=== PATIENT | female | born 1980 | race Caucasian/White ===

== ENCOUNTER 2018-05-27 02:19 | Inpatient (IN) | payer SELFPAY ==
[2018-05-27 02:37] VITALS: BMI 35.6
[2018-05-27] MEDS: Lactated Ringer's 1,000 ML IV ONE ×2 (03:00→04:00)
[2018-05-27] MEDS ORDERED: cefOXitin Sodium 1 GM in Sodium Chloride 0.9% 100 ML IVPB ONE (03:15)
[2018-05-27] MEDS ORDERED: OXYTOCIN/0.9 % NS 20 UNIT/1,000 ML BAG IV SCH (03:30)
--- NOTE | 2018-05-27 03:34 | OBADHP ---
Datetime: 05/27/2018 03:28 IP Chief Complaint Other: previous section in labor IP Adm Impression Other: prev C/S in labor Admit Comment, IP Provider: GBS neg. 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 Ext no calf tender ness. Gestation - Est Wks by US: 38+ IP Hx Assessment: The History has been Reviewed and is Current IP Chief Complaint: Uterine contractions; Other NICHD Variability Prov Fetus A: Minimal - Undetectable to <5bpm NICHD Decel Fetus A IP Provider: None Dilatation, Provider: 1cm Effacement, Provider: 50 Genitourinary Exam: Normal IP Adm Impression: Term, intrauterine ; Active labor IP Admit Plan: Admit to unit; Initiate Section protocol
[2018-05-27 03:41] LABS: BASO # 0.1 K/uL (0.0-0.2); BASO % 0.5 % (0.0-2.0); EOS # 0.2 K/uL (0.0-0.7); EOS % 1.3 % (0.0-4.0); HEMOGLOBIN 12.7 g/dL (12.0-16.0); LYMPH # 3.6 K/uL (1.0-4.3); LYMPH % 28.6 % (20.0-40.0); MEAN CELL VOLUME 84.9 fl (81.0-99.0); MEAN CORPUSCULAR HEMOGLOBIN 28.1 pg (27.0-31.0); MEAN CORPUSCULAR HGB CONC 33.1 g/dL (33.0-37.0); MEAN PLATELET VOLUME 9.2 fl (7.2-11.7); MONO # 0.8 K/uL (0.0-0.8); MONO % 6.6 % (0.0-10.0); NEUT # 7.9 K/uL (1.8-7.0); NRBC % 0.1 % (0.0-0.0); RBC 4.5 Mil/uL (3.80-5.20); RED CELL DISTRIBUTION WIDTH 15.3 % (11.5-14.5); WHITE BLOOD COUNT 12.5 K/uL (4.8-10.8)
[2018-05-27] MEDS ORDERED: Oxytocin 30 UNIT 30 UNITS/500 ML BAG IV ONE (03:45)
[2018-05-27] MEDS ORDERED: Morphine 5 mg/10 ml preservative-free Inj(Duramorph) ONE (04:11)
[2018-05-27] MEDS ORDERED: Sevoflurane - Inhalation Anesthetic Liq (250 ml) ONE (05:53)
[2018-05-27] MEDS ORDERED: Oxycodone/Acetaminophen 5/325 mg Tab PO PRN (06:28)
--- NOTE | 2018-05-27 06:29 | OBDS ---
MATERNAL INFORMATION Estimated Blood Loss (ml): 800 Maternal Complications: None Provider Comments: see dictated surgeons note LABOR INFORMATION Reason for Induction: Not Applicable Steroids Given: None Reason Steroids Not Administered: Not Applicable Other Reason Not Administered: n/a VAGINAL DELIVERY Episiotomy: None Laceration Extension: N/A Laceration Type: None Laceration Repair: Not Applicable Sponge Count Correct: Yes Sharps Count Correct: Yes Count Comment: count correct x3 CSECTION DELIVERY Primary Indication: Other-Prev C/S in labor Other Primary Indication: advanced maternal age Secondary Indication: multiparity and voluntary sterilization CSection Incision: Lower Uterine Transverse Other Sterilization Procedure: Modified [place] Uterine Closure: Double-layer closure BABY A INFORMATION Infant Delivery Date/Time: 05/27/2018 05:25 Method of Delivery: Born in Route : No : N/A Forceps: N/A Vacuum Extraction: N/A Shoulder Dystocia : No (Annotations: Data stored by CPN on behalf of user) SHOULDER DYSTOCIA BABY A Infant Delivery Date/Time: 05/27/2018 05:25
[2018-05-27] MEDS ORDERED: Multivitamin With Minerals Tab PO SCH (09:00)
[2018-05-27] MEDS ORDERED: cefOXitin Sodium 1 GM in Sodium Chloride 0.9% 100 ML IVPB SCH (09:00)
[2018-05-27] MEDS ORDERED: DiphenhydrAMINE 50 mg/ml Inj IVP PRN (11:25)
[2018-05-27] MEDS: cefOXitin Sodium 1 GM in Sodium Chloride 0.9% 100 ML IVPB SCH (17:02)
[2018-05-27] MEDS: Oxycodone/Acetaminophen 5/325 mg Tab PO PRN (21:26)
[2018-05-28] MEDS: cefOXitin Sodium 1 GM in Sodium Chloride 0.9% 100 ML IVPB SCH (00:12)
[2018-05-28] MEDS: Oxycodone/Acetaminophen 5/325 mg Tab PO PRN ×5 (01:18→20:50)
[2018-05-28 06:45] LABS: BASO # 0.1 K/uL (0.0-0.2); BASO % 0.7 % (0.0-2.0); EOS # 0.3 K/uL (0.0-0.7); EOS % 1.6 % (0.0-4.0); HEMOGLOBIN 11.2 g/dL (12.0-16.0); LYMPH # 2.6 K/uL (1.0-4.3); LYMPH % 16.1 % (20.0-40.0); MEAN CELL VOLUME 85.3 fl (81.0-99.0); MEAN CORPUSCULAR HEMOGLOBIN 27.8 pg (27.0-31.0); MEAN CORPUSCULAR HGB CONC 32.6 g/dL (33.0-37.0); MEAN PLATELET VOLUME 8.3 fl (7.2-11.7); MONO # 1.3 K/uL (0.0-0.8); MONO % 8.2 % (0.0-10.0); NEUT # 11.8 K/uL (1.8-7.0); NEUT % 73.4 % (50.0-75.0); RBC 4.01 Mil/uL (3.80-5.20); RED CELL DISTRIBUTION WIDTH 15.4 % (11.5-14.5); WHITE BLOOD COUNT 16.1 K/uL (4.8-10.8)
[2018-05-28] MEDS: Multivitamin With Minerals Tab PO SCH (09:18)
--- NOTE | 2018-05-28 10:46 | OBPPN ---
Datetime: 05/28/2018 10:41 PP Pain Prov: Within normal limits PP Pain Prov comment: no SOB, chest or leg pains PP Nausea Prov: Denies PP Flatus Prov: Yes PP BM Prov: No PP Nausea Prov comment: voiding well PP Breasts Prov: Normal PP Lungs Prov: Normal PP Abdomen/Uterus Prov: Abnormal PP Lochia Prov: Normal PP Vulva/Perineum Prov: Normal PP CVA Tenderness Prov: Normal PP Extremities Prov: Normal PP C/S Incision Prov: Normal PP Progress Prov: Normal PP Comments Phys Exam Prov: breast not engorged, NT, breast feeding; Abd soft ND, fundus firm at umb, dressing intact no sign of active bleeding; ext no edema or calf tenderness. PP Impression Prov: Normal progression PP Plan Prov: Continue present management PP Progress Note Prov: advance diet as tolerated CBC stable OOB and ambulation Continue po care IP PP Procedures: None
[2018-05-28] MEDS ORDERED: cefOXitin Sodium 1 GM in Sodium Chloride 0.9% 100 ML IVPB STA (10:52)
[2018-05-28] MEDS: Simethicone 80 mg Chewtab PO PRN (17:28)
[2018-05-29] MEDS: Simethicone 80 mg Chewtab PO PRN ×2 (00:41→09:23)
--- NOTE | 2018-05-29 02:53 | OP ---
PROCEDURE DATE: 05/27/2018 PREOPERATIVE DIAGNOSES: 1. at term. 2. Previous section in labor. 3. Advanced maternal age. 4. Multiparity and voluntary sterilization. POSTOPERATIVE DIAGNOSES: 1. at term. 2. Nuchal cord x1. PROCEDURES PERFORMED: 1. Repeat low-transverse segment section. 2. Bilateral tubal sterilization using a modified [place] procedure. SURGEON: Cameron Dickerson MD VP INTEGRATION: Dr. Clark. ANESTHESIA USED: Spinal. ANESTHESIA ADMINISTERED BY: Dr. Julio Cesar Crespo. ESTIMATED BLOOD LOSS: 800 mL. DRAINS USED: None. REPLACEMENT USED: None. FINDINGS: 1. Delivered a living baby boy. Baby appears term. Baby cries spontaneously. Cobbler Sole in attendance. score of 9 and 9. 2. Amniotic fluid clear. 3. Nuchal cord x1, undone prior to full delivery. 4. Placenta delivered complete and intact. 5. Both tubes and ovaries appear grossly within normal limits to inspection bilaterally. 6. Bilateral tubal sterilization using a modified [place] procedure was performed without any complication. DESCRIPTION OF PROCEDURE: The patient was taken to the operating room and placed on the operating table in a supine position. Following induction of spinal anesthesia, the patient was then replaced in a supine position. Venodyne boots were applied to both legs. Then, a Jacobsen catheter was inserted into the bladder was draining clear fluid. At this time, anesthesia was tested and found to be well secured. The abdomen was draped and prepped in the usual sterile manner. Following this, again anesthesia tested and found to be well secured and a Pfannenstiel incision was then made using sharp dissection along the edges of the previous incision. The incision was then extended down to subcutaneous tissue also using sharp dissection. At this time, we then proceeded to obtain hemostasis by means of electrocoagulation. Following this, we then proceeded to identify the fascia. The fascia was then entered in the midline. The incision in the fascia was then extended laterally on each direction using sharp dissection. Rectus muscle was then identified, was then slit at the midline, exposing the peritoneum. Peritoneal layer was then picked up using two Breanna clamps, retracted superiorly, and then entered using sharp dissection. The incision on the peritoneum was then extended superiorly and inferiorly under direct visualization. At this time, we then proceeded to identify the bladder, which was then retracted inferiorly using a Demetris retractor. Following this, we then proceeded to identify the low-transverse segment of the uterus, visceral peritoneum covering this area was then entered using sharp dissection. The incision was then extended laterally on each direction using bandage scissors. Upon entering the uterine cavity, clear fluid have been noted to be present. At this time, we then proceeded using a manual scooping procedure to deliver a living baby boy. The baby appeared term. Baby was cried spontaneously. There was a loop of cord around the neck, undone prior to full delivery. The baby was aspirated using the bulb suction. The umbilicus was then doubly clamped and cut, and the baby handed to the pediatric personnel who is standing by. Samples of cord blood were then obtained, and the placenta was then delivered complete and intact. The uterus was then exteriorized to provide better visualization. We then proceeded to clean the uterine cavity using moist lap pads. The uterus was massaged and contracted well. At this stage, we then proceeded to secure the uterine incision using multiple T-clamps, and the uterine incision was then approximated using a 0 Vicryl suture in a continuous interlocking manner. A second layer was also applied using 0 Vicryl suture in a continuous manner. Following this, we then proceeded to note that hemostasis was well secured. The bladder flap was then approximated using several interrupted 2-0 Rapide sutures. At this time, the patient was again asked and consented verbally again with her desire to tubal sterilization. The right fallopian tube was to its fimbriated end, and it was then grasped at the ampullary region using a [place] clamp and retracted superiorly. Following this, a 2-0 chromic was then passed through the mesosalpinx, and the ampullary region of the tube was then ligated. A 2-0 chromic free tie was then placed underneath the ligature, and the ligated section of the tube was then resected. Specimen was then sent to pathology for proper pathological evaluation. Same procedure was then performed in the contralateral site without any complications. Prior to this, both tubes and ovaries are being observed and noted to be grossly within normal limits to inspection bilaterally. Following bilateral tubal ligation, free amniotic fluid and blood evacuated from the pelvic cavity. The pelvic cavity was then cleaned using moist lap pad, and the uterus was then allowed to retract back into its original position. All operative areas checked again, hemostatically secured, and we then proceeded to close the peritoneum using 0 Vicryl suture in a continuous manner. Rectus muscle was then approximated in the midline using 0-Vicryl suture in a continuous manner also. At this time, we then proceeded to identify the fascia which was then closed using 1 Vicryl suture in a continuous manner. Fascia was then checked and found to be free of defect. Subcutaneous tissue was then irrigated using saline solution and approximated using several interrupted 2-0 plain sutures. The skin was then approximated using a 3-0 Prolene in a subcuticular fashion. Steri-Strips were then applied. The patient tolerated the procedure well. There were no complications. Sponge, instrument, and needle counts were correct x3. The patient was then transferred to the recovery room in satisfactory condition. Clear fluid noted to be present in the Jacobsen bag at this time. Cameron Dickerson MD
[2018-05-29] MEDS: Oxycodone/Acetaminophen 5/325 mg Tab PO PRN ×4 (04:48→17:46)
[2018-05-29] MEDS: Multivitamin With Minerals Tab PO SCH (09:24)
--- NOTE | 2018-05-29 13:56 | OBPPN ---
Datetime: 05/29/2018 13:51 PP Pain Prov: Within normal limits PP Nausea Prov: Denies PP Flatus Prov: Yes PP BM Prov: No PP Breasts Prov: Normal PP Heart Prov: Normal PP Lungs Prov: Normal PP Abdomen/Uterus Prov: Normal PP Lochia Prov: Normal PP Vulva/Perineum Prov: Normal PP CVA Tenderness Prov: Normal PP Extremities Prov: Normal PP C/S Incision Prov: Normal PP Progress Prov: Normal PP Impression Prov: Normal progression PP Plan Prov: Continue present management PP Progress Note Prov: stable pod1,continue present care,encourage ambulation,advance diet as tolera иван IP PP Procedures: None Vital Signs Provider PP: Reviewed; Within Normal Limits
[2018-05-30] MEDS: Oxycodone/Acetaminophen 5/325 mg Tab PO PRN (00:14)
[2018-05-30] MEDS: Multivitamin With Minerals Tab PO SCH (09:05)
--- NOTE | 2018-05-30 12:02 | OBPPN ---
Datetime: 05/30/2018 11:59 PP Pain Prov: Within normal limits PP Pain Prov comment: No SOB chest or leg pains PP Nausea Prov: Denies PP Flatus Prov: Yes PP BM Prov: Yes PP Nausea Prov comment: voiding well PP Breasts Prov: Normal PP Lungs Prov: Normal PP Abdomen/Uterus Prov: Abnormal PP Vulva/Perineum Prov: Not Done PP CVA Tenderness Prov: Normal PP Extremities Prov: Normal PP C/S Incision Prov: Normal PP Progress Prov: Normal PP Comments Phys Exam Prov: breast not engorged, bst feeding, NT; Abd soft ND, fundus firm below umb . Incission clean and dry suture in place no active bleeding or sign of infection Ext no calf tender ness no edema PP Impression Prov: Normal progression PP Plan Prov: Discharge PP Progress Note Prov: D/C home with instructions and follow up in office 1 wk IP PP Procedures: None Vital Signs Provider PP: Reviewed
--- NOTE | 2018-05-30 12:05 | OBDCSUM ---
Datetime: 05/30/2018 12:02 Discharged to, Provider: Home Follow up at, Provider: Dr Dickerson Disch Instr Activity: Bedrest; May be up to bathroom; May be up for meals; May Shower Disch Instr Diet: Regular Discharge Instructions, Provider: Routine instructions given Discharge Diagnosis, Provider: Term Delivered Discharge Time: 05/30/2018 12:02 Follow up in weeks, Provider: 1 wk Disch Referrals: None Contraception discussed, Prov: Yes Disch Activity Restrictions: No exercising; No lifting; No driving; Minimize walking; Minimize stair -climbing; No sexual activity; Nothing in vagina - Gray, tampons, douche Discharge Comment, Provider: Rx for Percocet given Instructions given Continue PNC vit and iron Discharge Diagnosis Prov Other: multiparity vol sterilization Contraception after Delivery: Tubal Ligation
[2018-05-30 19:09] VITALS: BP 116/72; PULSE 69; RESP 20; TEMP 97.8; O2SAT 96
== END 2018-05-30 13:25 | disposition home or self-care (01) | DRG 785 ==
LOC: H.EROB2 02:19 → H.L&D 03:24 → H.OB/GYN 09:58
PROVIDERS: ADMIT Specialist; ATTEND Specialist
PROC: 10D00Z1 Extraction of Products of Conception, Low, Open Approach (ICD-10-PCS; principal; 2018-05-27)
PROC: 0UB70ZZ Excision of Bilateral Fallopian Tubes, Open Approach (ICD-10-PCS; 2018-05-27)
PROC: 4A1HXCZ Monitoring of Products of Conception, Cardiac Rate, External Approach (ICD-10-PCS; 2018-05-27)
DX: O34.211 Maternal care for low transverse scar from previous cesarean delivery (principal); N85.8 Other specified noninflammatory disorders of uterus; Z64.1 Problems related to multiparity; Z30.2 Encounter for sterilization; O69.81X0 Labor and delivery complicated by cord around neck, without compression, not applicable or unspecified; Z37.0 Single live birth; Z3A.38 38 weeks gestation of pregnancy